=== PATIENT | female | born 1960 | race Caucasian/White ===

== ENCOUNTER → 2020-06-15 15:52 | Outpatient (CLI) | payer OTHER, SELFPAY ==
--- NOTE | 2020-06-15 16:04 | CT_ITS ---
We are attempting to reach an attending provider to discuss findings. An addendum with communication details will be sent when the communication is complete. INDICATION: SOB EXAMINATION: CTA Chest WO/W Contrast Injection TECHNIQUE: Helically acquired images were obtained of the chest following IV contrast. A radiation dose optimization technique was used for this scan. IV Contrast dosage and agent: 100 cc [id number] COMPARISON: None. FINDINGS: Lungs: There are bilateral scattered groundglass opacities and airspace consolidation, most severe in the lung bases. Air bronchograms can be seen in the lung bases as well. Mediastinum: The cardiomediastinal silhouette is not enlarged. No mediastinal, hilar or axillary adenopathy. The thoracic aorta is unremarkable. Small amount of clot seen in the left interlobar pulmonary artery. No evidence of right heart strain. Pleura: Unremarkable Bones/Soft tissues: Mild scattered degenerative changes of the visualized spine. Upper abdomen: No visualized abnormalities in the upper abdomen. CT/CTA Chest W/WO Contrast IMPRESSION: Small volume of pulmonary arterial emboli in the left interlobar pulmonary artery. No evidence of right heart strain. Bilateral groundglass opacities and airspace consolidation concerning for infection. Electronically Signed: Dion Buckley MD at 16:50 EDT Tel , Service support ,
[2020-06-15 16:21] LABS: CREATININE FINGERSTICK 0.8 mg/dL (0.55-1.02); EGFR FINGERSTICK > 60.0000 mL/min (>60)
[2020-06-15 17:06] LABS: D-Dimer Quantitative (DVT/PE) 0.46 FEU/ug/m (0.27-0.49)
== END ==
PROVIDERS: PCP Student in an Organized Health Care Education/Training Program; Referring Provider Student in an Organized Health Care Education/Training Program; Visit Provider Student in an Organized Health Care Education/Training Program
DX: R06.02 Shortness of breath (principal); R93.89 Abnormal findings on diagnostic imaging of other specified body structures; D47.3 Essential (hemorrhagic) thrombocythemia; R09.89 Other specified symptoms and signs involving the circulatory and respiratory systems; R07.89 Other chest pain
CPT/HCPCS: 71275; 85379; Q9967

== ENCOUNTER → 2020-06-17 10:49 | Outpatient (CLI) | payer OTHER, SELFPAY ==
[2020-06-18 06:08] LABS: HEPATITIS B SURFACE AG Negative (Negative); Hepatitis A IgM Antibody Negative (Negative); Hepatitis B Core AB IgM Negative (Negative)
[2020-06-18 14:20] LABS: Hep C Antibodies <0.1 s/co ratio (0.0-0.9)
== END ==
PROVIDERS: PCP Student in an Organized Health Care Education/Training Program; Referring Provider Internal Medicine Hematology & Oncology; Visit Provider Internal Medicine Hematology & Oncology
DX: Z20.822 Contact with and (suspected) exposure to COVID-19 (principal); I26.99 Other pulmonary embolism without acute cor pulmonale; R94.5 Abnormal results of liver function studies
CPT/HCPCS: 36415; 80074; 86769